=== PATIENT | female | born 1960 | race Caucasian/White ===

== ENCOUNTER 2018-10-19 14:10 | Emergency (ER) | payer OTHER ==
[~2018-10-19] VITALS: Ht 152.4 cm; Wt 73.9 kg
[~2018-10-19 14:10] MED LIST: ACET325T9 PO; LORA10CA PO
[2018-10-19 14:59] VITALS: BP 139/63
[2018-10-19] MEDS: ONDANSETRON ODT 4 MG TAB.RAPDIS. PO ONE (16:06)
--- NOTE | 2018-10-19 16:06 | PHYS DOC ---
Past Medical History Past Medical History: Other Additional Past Medical Histor: SEASONAL ALLERGIES Past Surgical History: Hysterectomy, Tubal ligation Alcohol Use: Rarely Drug Use: None Adult General Chief Complaint Chief Complaint: NAUSEA/VOMITING/DIARRHA HPI HPI Patient is a 58 year old [female] who presents with nausea, diarrhea, right ear pain. Patient reports she had been given a antibiotic for a ear infection approximately 5-6 days ago, from primary care provider. Reports she had delayed to take the antibiotic until her first dose today. Reports she was given Ceftin year and has never taken them before, took one dose today and has had explosive diarrhea ever since that time. States her ear starting to feel better, but she had an episode when she got here of pulse of diarrhea which made her feel really weak and a little bit dizzy afterwards. Reports she feels little bit nauseous and has had some lower abdominal pain which comes only reports she has diarrhea. Denies any other complaints. Reports she thinks this is related to the new antibiotic, she does not want to take that anymore. Does report some increased urinary frequency here, with little urinary output. Review of Systems Review of Systems Constitutional: Denies fever or chills [] Eyes: Denies change in visual acuity, redness, or eye pain [] HENT: Denies nasal congestion or sore throat does report she had infection in her right here recently, has taken one dose of antibiotic[] Respiratory: Denies cough or shortness of breath [] Cardiovascular: No additional information not addressed in HPI [] GI: Reports diarrhea, with lower abdominal pain and cramping preceding her diarrhea episodes, reports nausea, reports no episodes of vomiting. Denies marcelino nge in stools, denies any bloody stools. [] : Denies dysuria or hematuria, does report some increased urinary frequency, and decreased urine output per time she is trying to urinate [] Musculoskeletal: Denies back pain or joint pain [] Integument: Denies rash or skin lesions [] Neurologic: Denies headache, focal weakness or sensory changes [] All other systems were reviewed and found to be within normal limits, except as documented in this note. Current Medications Current Medications Current Medications Medications (Trade) Dose Ordered Sig/Saumya Start Time Stop Time Status Last Admin Dose Admin Ondansetron HCl (Zofran Odt) 4 mg 1X ONCE 10/19/18 16:00 10/19/18 16:01 DC 10/19/18 16:06 4 MG Allergies Allergies Allergies Coded Allergies Type Severity Reaction Last Updated Verified Penicillins Allergy Intermediate hives 12/13/14 Yes Physical Exam Physical Exam Constitutional: Well developed, well nourished, no acute distress, non-toxic appearance. [] HENT: Normocephalic, atraumatic, left ear normal. Right ear with minimal serous drainage noted, no erythema., oropharynx moist, no oral exudates, nose normal. [] Eyes: PERRLA, EOMI, conjunctiva normal, no discharge. [] Neck: Normal range of motion, no tenderness, supple, no stridor. [] Cardiovascular:Heart rate regular rhythm, no murmur [] Lungs & Thorax: Bilateral breath sounds clear to auscultation [] Abdomen: Bowel sounds normal, soft, no tenderness, no masses, no pulsatile masses. [] Skin: Warm, dry, no erythema, no rash. [] Back: No tenderness, no CVA tenderness. [] Extremities: No tenderness, no cyanosis, no clubbing, ROM intact, no edema. [] Neurologic: Alert and oriented X 3, normal motor function, normal sensory function, no focal deficits noted. [] Psychologic: Affect normal, judgement normal, mood normal. [] Current Patient Data Vital Signs Vital Signs Date Time Temp Pulse Resp B/P (MAP) Pulse Ox O2 Delivery O2 Flow Rate FiO2 10/19/18 14:59 98.5 94 16 139/63 (88) 94 Room Air 98.5 Lab Values Laboratory Tests Test 10/19/18 16:00 10/19/18 16:50 White Blood Count 13.7 x10^3/uL (4.0-11.0) H Red Blood Count 5.60 x10^6/uL (3.50-5.40) H Hemoglobin 16.8 g/dL (12.0-15.5) H Hematocrit 49.4 % (36.0-47.0) H Mean Corpuscular Volume 88 fL (79-100) Mean Corpuscular Hemoglobin 30 pg (25-35) Mean Corpuscular Hemoglobin Concent 34 g/dL (31-37) Red Cell Distribution Width 12.5 % (11.5-14.5) Platelet Count 262 x10^3/uL (140-400) Neutrophils (%) (Auto) 92 % (31-73) H Lymphocytes (%) (Auto) 4 % (24-48) L Monocytes (%) (Auto) 4 % (0-9) Eosinophils (%) (Auto) 1 % (0-3) Basophils (%) (Auto) 0 % (0-3) Neutrophils # (Auto) 12.6 x10^3/uL (1.8-7.7) H Lymphocytes # (Auto) 0.5 x10^3/uL (1.0-4.8) L Monocytes # (Auto) 0.5 x10^3/uL (0.0-1.1) Eosinophils # (Auto) 0.1 x10^3/uL (0.0-0.7) Basophils # (Auto) 0.0 x10^3/uL (0.0-0.2) Platelet Estimate Pending Sodium Level 141 mmol/L (136-145) Potassium Level 4.1 mmol/L (3.5-5.1) Chloride Level 104 mmol/L (98-107) Carbon Dioxide Level 22 mmol/L (21-32) Anion Gap 15 (6-14) H Blood Urea Nitrogen 15 mg/dL (7-20) Creatinine 0.8 mg/dL (0.6-1.0) Estimated GFR (Cockcroft-Gault) 73.7 BUN/Creatinine Ratio 19 (6-20) Glucose Level 123 mg/dL (70-99) H Calcium Level 9.4 mg/dL (8.5-10.1) Total Bilirubin 0.5 mg/dL (0.2-1.0) Aspartate Amino Transferase (AST) 25 U/L (15-37) Alanine Aminotransferase (ALT) 36 U/L (14-59) Alkaline Phosphatase 111 U/L (46-116) Troponin I Quantitative < 0.017 ng/mL (0.000-0.055) Total Protein 7.4 g/dL (6.4-8.2) Albumin 4.0 g/dL (3.4-5.0) Albumin/Globulin Ratio 1.2 (1.0-1.7) Urine Collection Type Clean catch Urine Color Dk yellow Urine Clarity Cloudy Urine pH 5.0 Urine Specific [place] >=1.030 Urine Protein 30 mg/dL (NEG-TRACE) Urine Glucose (UA) Negative mg/dL (NEG) Urine Ketones (Stick) 15 mg/dL (NEG) Urine Blood Small (NEG) Urine Nitrite Negative (NEG) Urine Bilirubin Small (NEG) Urine Urobilinogen Dipstick 0.2 mg/dL (0.2 mg/dL) Urine Leukocyte Esterase Moderate (NEG) Urine RBC Occ /HPF (0-2) Urine WBC 5-10 /HPF (0-4) Urine Squamous Epithelial Cells Many /LPF Urine Bacteria Many /HPF (0-FEW) Urine Mucus Marked /LPF Laboratory Tests 10/19/18 16:00 Laboratory Tests 10/19/18 16:00 EKG EKG No STEMI, no acute changes, probable left axis deviation. [] Radiology/Procedures Radiology/Procedures [] Course & Med Decision Making Course & Med Decision Making Pertinent Labs and Imaging studies reviewed. (See chart for details) [Discussed recommendation for IV fluids, IV nausea medications. Patient states she does not want an IV, she would like to try some ODT Zofran though. Discussed admission to do lab work, urinalysis. Patient is in agreement with this. Will evaluate the labs, urinalysis.Ear noted improvement, did not believe need for continued antibiotics for her ear. Patient reports she is feeling better, has no more weakness at this time. Reviewed urinalysis results, discussed use of antibiotic for bladder infection, Discussed use of Zofran as needed for nausea. patient in agreement with plan without further questions Will follow up with PCP] Mandeep Disclaimer Dragon Disclaimer This electronic medical record was generated, in whole or in part, using a voice recognition dictation system. Departure Departure Impression: Primary Impression: Urinary tract infection Additional Impression: Nausea & vomiting Disposition: 01 HOME, SELF-CARE Condition: GOOD Referrals: THIAGO DOBBINS MD (PCP) Patient Instructions: Nausea and Vomiting, Urinary Tract Infection Additional Instructions: As we discussed, use the nausea medicine anytime or taking medications and feel nauseous. Take antibiotic for your bladder infection as prescribed. Follow-up with her primary care provider as needed and are staying hydrated by drinking plenty of fluids Scripts Nitrofurantoin Monohyd/M-Cryst (MACROBID 100 MG CAPSULE) 100 Mg Capsule 1 CAP PO BID, #10 CAP Prov: BRIAN HERNANDEZ APRN 10/19/18 Ondansetron (ONDANSETRON ODT) 4 Mg Tab.rapdis 1 TAB PO PRN Q6-8HRS, #16 TAB Prov: BRIAN HERNANDEZ APRN 10/19/18 Problem Qualifiers Primary Impression: Urinary tract infection Urinary tract infection type: acute cystitis Hematuria presence: with hematuria Qualified Codes: N30.01 - Acute cystitis with hematuria Additional Impression: Nausea & vomiting Vomiting type: unspecified Vomiting Intractability: non-intractable Qualified Codes: R11.2 - Nausea with vomiting, unspecified BRIAN HERNANDEZ APRN Oct 19, 2018 16:06
[2018-10-19 16:17] LABS: BASO % 0 % (0-3); EOS # 0.1 x10^3/uL (0.0-0.7); EOS % 1 % (0-3); HEMATOCRIT 49.4 % (36.0-47.0); HEMOGLOBIN 16.8 g/dL (12.0-15.5); LYMPH # 0.5 x10^3/uL (1.0-4.8); LYMPH % 4 % (24-48); MEAN CORPUSCULAR HEMOGLOBIN 30 pg (25-35); MEAN CORPUSCULAR HGB CONC 34 g/dL (31-37); MEAN CORPUSCULAR VOLUME 88 fL (79-100); MONO # 0.5 x10^3/uL (0.0-1.1); MONO % 4 % (0-9); NEUT # 12.6 x10^3/uL (1.8-7.7); NEUT % 92 % (31-73); PLATELET COUNT 262 x10^3/uL (140-400); RED CELL DISTRIBUTION WIDTH 12.5 % (11.5-14.5); WHITE BLOOD COUNT 13.7 x10^3/uL (4.0-11.0)
[2018-10-19 16:23] LABS: CALCIUM 9.4 mg/dL (8.5-10.1); CREATININE 0.8 mg/dL (0.6-1.0); GFR 73.7; POTASSIUM 4.1 mmol/L (3.5-5.1)
[2018-10-19 16:30] LABS: ALBUMIN/GLOBULIN RATIO 1.2 (1.0-1.7); TOTAL BILIRUBIN 0.5 mg/dL (0.2-1.0); TOTAL PROTEIN 7.4 g/dL (6.4-8.2)
[2018-10-19 17:03] LABS: BILIRUBIN,URINE SMALL (NEG); CLARITY,URINE CLOUDY; NITRITE,URINE NEGATIVE (NEG); PROTEIN,URINE 30 mg/dL (NEG-TRACE); UROBILINOGEN,URINE 0.2 mg/dL (0.2 mg/dL)
[2018-10-19 17:14] LABS: COLOR,URINE DK YELLOW
[2018-10-19 17:17] LABS: BACTERIA,URINE MANY /HPF (0-FEW); RBC,URINE OCC /HPF (0-2); SQUAMOUS EPITHELIAL CELL,UR MANY /LPF
[2018-10-19 17:26] LABS: % BANDS 13 % (0-9); % LYMPHS 6 % (24-48); % MONOS 1 % (0-10); % SEGS 80 % (35-66); PLT ESTIMATE ADEQUATE (ADEQUATE)
[2018-10-19] MEDS ORDERED: ONDA4TAB12 PO (17:33)
[2018-10-19] MEDS ORDERED: NITR100C62 PO (17:33)
--- NOTE | 2018-10-20 07:13 | EKG ---
[facility] [address] [place] [address] Test Date: 2018-10-19 Test Time: 14:56:45 Pat Name: CHEY ZENG Department: Room: Gender: F [employer]: : [id number] Requested By: BRIAN HERNANDEZ Order Number: [id number] Reading MD: Jovan Hansen MD Measurements Intervals [place] Rate: 91 P: 66 MI: 162 QRS: -29 QRSD: 84 T: 42 QT: 364 QTc: 449 Interpretive Statements SINUS RHYTHM Electronically Signed On 10-20-2018 18:16:37 CDT by Jovan Hansen MD
== END 2018-10-19 17:38 | disposition home or self-care (01) ==
LOC: ER 14:10
DX: N39.0 Urinary tract infection, site not specified (principal); R11.2 Nausea with vomiting, unspecified; R19.7 Diarrhea, unspecified; Z90.710 Acquired absence of both cervix and uterus; Z98.51 Tubal ligation status; Z88.0 Allergy status to penicillin
CPT/HCPCS: 36415; 80053; 81001; 84484; 85007; 85025; 87086; 93005; 99285; Q0162